=== PATIENT | male | born 1950 | race Two or more races ===

== ENCOUNTER 2024-05-15 15:24 | Emergency (ER) | payer OTHER ==
[~2024-05-15] VITALS: Ht 170.2 cm; Wt 60.5 kg
--- NOTE | 2024-05-15 16:01 | ECG ---
[facility] Test Date: 2024-05-15 Test Time: 15:44:30 Pat Name: DANE GARCIA Department: er Room: Gender: M [employer] Consultant: gp : [id number] Requested By: JERI AGGARWAL Order Number: [id number] Reading MD: Jc Lynch Measurements Intervals Meyers Chuck Rate: 101 P: 56 MD: 148 QRS: 20 QRSD: 110 T: 65 QT: 351 QTc: 455 Interpretive Statements Sinus tachycardia Ventricular trigeminy Low voltage, precordial leads RSR' in V1 or V2, right VCD or RVH Electronically Signed On 05-16-2024 16:24:53 PST by Jc Lynch Please click the below link to view image of tracing.
--- NOTE | 2024-05-15 16:21 | ED.PDOC ---
History of Present Illness HPI Comments 73-year-old male brought in by EMS, transferred from [facility] with a diagnosis of sepsis and a pulmonary abscess. The patient presented to [facility] complaining of generalized weakness and dizziness. Patient was released from [facility] 5 days ago after being treated for sepsis frequent falls. CT chest, abdomen and pelvis was performed at [facility] with findings consistent with a developing pulmonary abscess. Patient was treated with IV Zosyn. Patient was transferred here for higher level of care, as [place] does not have pulmonology services. Arrival to our ER, the patient states he feels chest heaviness, shortness of breath and right-sided chest pain which is stabbing. He denies any headache, dizziness or focal weakness. Chief Complaint: Shortness of Breath Time Seen by MD: 15:35 Reviewed Notes: Nurses Notes, Wood Model Builder Notes Allergies: Coded Allergies: Penicillins (Verified Allergy, Unknown, 05/15/24) Information Source: Patient, Transfer Record, Emergency Med Personnel Mode of Arrival: EMS Past Medical History PAST MEDICAL HISTORY: HTN Past Medical History (Other): Chronic back pain, anxiety, prostate disease, neuropathy, gastritis, GERD, fibromyalgia Family History Family History: Reviewed,noncontributory to illness Social History Smoker: Cigarettes Alcohol: Denies ETOH Use Drugs: Denies Drug Use Lives In: Home All Other Systems: Reviewed and Negative (Comprehensive systems review obtained and negative except for what is stated in the HPI.) Physical Exam General Appearance: No Apparent Distress HEENT: PERRL/EOMI, Other (Old appearing infraorbital ecchymoses) Neck: Full Range of Motion, Non-Tender, Normal Inspection, Supple Respiratory: Crackles (Right base), Decreased Breath Sounds (Right side), No Accessory Muscle Use, No Respiratory Distress, Other (Easily speaks full sentences) Cardiovascular: No Edema, No JVD, Regular Rate/Rhythm Breast Exam: Deferred Gastrointestinal: Non Tender, Soft Genitalia: Deferred Pelvic: Deferred Rectal: Deferred Extremities: Normal inspection, Normal range of motion, Non-tender, No pedal edema Neurologic: Alert (Oriented x4), Other (Moves all extremities, no facial asymmetry, no gross focal deficit) Cerebellar Function: NOT DONE Reflexes: NOT DONE Skin: Dry, Pallor, Warm Lymphatic: NOT DONE Was a procedure done? Was a procedure done?: No EKG EKG : Comments Sinus tach, rate 101, normal intervals, normal axis, possible right ventricular conduction delay, occasional PVCs, no ST/T changes. Differential Dx Considerations may include: Pneumonia, lung abscess, neoplasm, sepsis, among others X-Ray, Labs, Meds, VS Vital Signs Date Time Temp Pulse Resp B/P (MAP) Pulse Ox O2 Delivery O2 Flow Rate FiO2 05/15/24 21:02 90 16 127/65 05/15/24 19:52 99.0 94 19 132/60 (84) 94 99.0 05/15/24 19:52 94 19 94 Nasal Cannula* 2 28 05/15/24 18:55 97 18 125/60 (81) 93 05/15/24 15:45 101 05/15/24 15:30 20 95 Room Air* 0 21 05/15/24 15:30 98.7 97 20 136/63 (87) 95 Lab Test 05/15/24 16:40 05/15/24 16:00 Range/Units White Blood Count 14.2 H 4.4-10.8 10^3/uL Red Blood Count 3.04 L 4.5-5.90 10^6/uL Hemoglobin 9.4 L 13.5-17.5 g/dL Hematocrit 29.3 L 41.0-53.0 % Mean Corpuscular Volume 96.3 80.0-100.0 fL Mean Corpuscular Hemoglobin 31.0 28.0-32.0 pg Mean Corpuscular Hemoglobin Concent 32.2 32.0-36.0 g/dL Red Cell Distribution Width 14.3 11.8-14.3 % Platelet Count 636 H 140-450 10^3/uL Mean Platelet Volume 8.0 6.9-10.8 fL Neutrophils (%) (Auto) 84.3 H 37.0-80.0 % Lymphocytes (%) (Auto) 7.0 L 10.0-50.0 % Monocytes (%) (Auto) 7.4 0.0-12.0 % Eosinophils (%) (Auto) 0.9 0.0-7.0 % Basophils (%) (Auto) 0.4 0.0-2.0 % Neutrophils # (Auto) 12.0 H 1.6-8.6 10 ^3/uL Lymphocytes # (Auto) 1.0 0.4-5.4 10 ^3/uL Monocytes # (Auto) 1.1 0-1.3 10 ^3/uL Eosinophils # (Auto) 0.1 0-0.8 10 ^3/uL Basophils # (Auto) 0.1 0-0.2 10 ^3/uL Nucleated Red Blood Cells 0.0 % Sodium Level 141 136-145 mmol/L Potassium Level 4.0 3.5-5.1 mmol/L Chloride Level 109 H 98-107 mmol/L Carbon Dioxide Level 25 20-31 mmol/L Anion Gap 7 5-15 Blood Urea Nitrogen 9 9-23 mg/dL Creatinine 0.85 0.700-1.30 mg/dL Glomerular Filtration Rate Calc 91 >90 mL/min BUN/Creatinine Ratio 10.6 10.0-20.0 Serum Glucose 94 74-106 mg/dL Calcium Level 8.1 L 8.7-10.4 mg/dL Lactic Acid Level 1.4 0.4-2.0 mmol/L Current Medications Medications (Trade) Dose Ordered Sig/Tee Route Start Time Stop Time Status Last Admin Morphine Sulfate 4 mg ONCE ONCE IV 05/15/24 20:45 05/15/24 20:46 DC 05/15/24 21:02 Ondansetron HCl (Zofran) 4 mg ONCE ONCE IV 05/15/24 20:45 05/15/24 20:46 DC 05/15/24 21:03 X-Ray, Labs, Meds, VS Comment 73-year-old male with history of hypertension, anxiety, fibromyalgia, gastritis, GERD and prostate disease transferred from [facility] for pulmonology evaluation due to developing right pulmonary abscess Vitals remarkable for Exam remarkable for diminished breath sounds and crackles on the right. Rhythm strip independently interpreted by me: Sinus tach, rate 101, occasional PVCs Chest x-ray performed at [facility] reviewed: Showing patchy infiltrates throughout the left lung and at right lung base consistent with pneumonia. CT chest abdomen and pelvis performed at [facility] reviewed: Impression: Multifocal airspace disease suspicious for multifocal infection. There is more focal consolidation in the right lower lobe with central areas of hypoattenuation possibly representing intraparenchymal pulmonary abscess formation. Recommend repeat imaging after treatment to ensure complete resolution and exclude underlying neoplastic etiology. Distended stomach. Moderate volume colonic stool. CBC, BMP BNP, troponin, lactate, blood cultures, sputum culture pending. Patient was treated with IV Zosyn and vancomycin at [facility]. Patient received the following treatment in our ED: Morphine 4 mg IV, Zofran 4 mg IV. Patient stated pain had improved. Vitals were stable. Plan was to admit the patient for IV antibiotics and pulmonology evaluation. I discussed the case with Dr. Randolph, who was able to obtain the records from [facility] and felt the patient's current findings are consistent with his condition at the time of discharge from [facility]. He did not feel the patient required ongoing IV antibiotics. The patient is in fact on oxygen at home since leaving [facility]. I re-evaluated the patient, and he stated that he felt he was improving at home, however he feels very weak, his pain is not well controlled, and he stated he would prefer to go to a group home facility. I discussed this with Dr. Randolph, who will contact case management to arrange for the patient to be transferred to a group home facility in the morning. Patient is currently stable for discharge from an ED standpoint. Time of 1ST Reevaluation: 16:18 Reevaluation 1ST: Unchanged Time of 2ND Reevaluation: 20:53 Reevaluation 2ND: Improved Patient Education/Counseling: Diagnosis, Treatment Family Education/Counseling: No Family Present Departure 1 Departure Time of Disposition: 16:19 Impression: Primary Impression: Abscess of lung with pneumonia Qualified Codes: J85.1 - Abscess of lung with pneumonia Disposition: 03 CUSTODIAL FACILITY Condition: Stable Discharged With: Self Critical Care Note Critical Care Time?: No Stability Stability form required: No Heart Score Heart Score: Heart Score Response (Comments) Value History Slightly Suspicious 0 EKG Normal 0 Age >65 2 Risk Factors 1 or 2 risk factors 1 Troponin Normal limit 0 Total 3 JERI BONDS MD May 15, 2024 16:21
[2024-05-15 17:04] LABS: Basophils # (auto) 0.1 10 ^3/uL (0-0.2); Basophils % (auto) 0.4 % (0.0-2.0); Eosinophils # (auto) 0.1 10 ^3/uL (0-0.8); Eosinophils % (auto) 0.9 % (0.0-7.0); Hematocrit 29.3 % (41.0-53.0); Hemoglobin 9.4 g/dL (13.5-17.5); Mean Corpuscular Hgb Conc. 32.2 g/dL (32.0-36.0); Mean Corpuscular Volume 96.3 fL (80.0-100.0); Monocytes # (auto) 1.1 10 ^3/uL (0-1.3); Monocytes % (auto) 7.4 % (0.0-12.0); Neutrophils % (auto) 84.3 % (37.0-80.0); Platelet Count (auto) 636 10^3/uL (140-450); Red Blood Cells 3.04 10^6/uL (4.5-5.90); Red Cell Distribution Width 14.3 % (11.8-14.3); White Blood Cell 14.2 10^3/uL (4.4-10.8)
[2024-05-15 17:17] LABS: Sodium 141 mmol/L (136-145)
[2024-05-15 17:18] LABS: Anion Gap 7 (5-15); Carbon Dioxide 25 mmol/L (20-31)
[2024-05-15 17:23] LABS: BUN/Creatinine Ratio 10.6 (10.0-20.0); Blood Urea Nitrogen 9 mg/dL (9-23); Glucose 94 mg/dL (74-106)
[2024-05-15 18:00] LABS: Calcium 8.1 mg/dL (8.7-10.4); Chloride 109 mmol/L (98-107)
[2024-05-15 19:52] VITALS: PULSE 94; RESP 19; O2SAT 94
[2024-05-15] MEDS: MORPHINE SULFATE 4 MG/ML SYR/VIAL IV ONE (21:02)
[2024-05-15] MEDS: ONDANSETRON HCL 4 MG/2 ML VIAL IV ONE (21:03)
[2024-05-15] MEDS: HYDROcodone-ACET 10/325MG TAB PO ONE (23:16)
[2024-05-16] MEDS: VANCOMYCIN 1GM/250ML KIT 200 ML IV ONE (01:00)
[2024-05-16] MEDS ORDERED: LEVO500T91 PO (01:08)
[2024-05-16] MEDS: MEROPENEM 1GM IVPB 50 ML IV SCH (01:30)
[2024-05-16] MEDS: QUEtiapine FUMARATE 100 MG TAB PO ONE (01:46)
[2024-05-16 03:05] LABS: COVID19 ANTIGEN SOFIA FIA NEGATIVE (NEGATIVE); Rapid Influenza A Negative (Negative); Rapid Influenza B Negative (Negative)
[2024-05-16] MEDS: HYDROcodone-ACET 5/325MG TAB PO ONE (07:04)
[2024-05-16 07:23] LABS: Basophils # (auto) 0.1 10 ^3/uL (0-0.2); Basophils % (auto) 0.9 % (0.0-2.0); Eosinophils # (auto) 0.2 10 ^3/uL (0-0.8); Eosinophils % (auto) 1.5 % (0.0-7.0); Hematocrit 28.8 % (41.0-53.0); Hemoglobin 9.7 g/dL (13.5-17.5); Lymphocytes # (auto) 1.3 10 ^3/uL (0.4-5.4); Lymphocytes % (auto) 11.6 % (10.0-50.0); Mean Corpuscular Hemoglobin 31.5 pg (28.0-32.0); Mean Corpuscular Hgb Conc. 33.5 g/dL (32.0-36.0); Monocytes % (auto) 9.3 % (0.0-12.0); Neutrophils # (auto) 8.4 10 ^3/uL (1.6-8.6); Neutrophils % (auto) 76.7 % (37.0-80.0); Platelet Count (auto) 512 10^3/uL (140-450); Red Blood Cells 3.06 10^6/uL (4.5-5.90); Red Cell Distribution Width 13.8 % (11.8-14.3); White Blood Cell 10.9 10^3/uL (4.4-10.8)
[2024-05-16 08:54] VITALS: RESP 18; O2SAT 96
[2024-05-16 10:39] VITALS: BP 123/57; PULSE 91; RESP 20; TEMP 98; O2SAT 94
--- NOTE | 2024-05-17 20:55 | DVHINCON2 ---
DATE OF CONSULTATION: 05/16/2024 CHIEF COMPLAINT: Coming in from [facility] due to concern for sepsis and reduced level of consciousness and sepsis. The patient apparently most recently hospitalized at [facility] and was recently discharged on 05/11/2024. The patient went home to his [facility] for reduced level of consciousness and concern for sepsis. HISTORY OF PRESENT ILLNESS: This is a 73-year-old male with significant past medical history for hypertension, insomnia, benign prostate hypertrophy, fibromyalgia and acid reflux, who presents to our emergency room from [facility] due to concern for sepsis and altered level of consciousness. The patient apparently had recent hospitalization at [facility] from 04/29/2024 to 05/11/2024, complicated by aspiration pneumonia, Klebsiella urinary tract infection leading to sepsis as well as requiring oxygen on discharge with 2 liters of nasal cannula oxygen. The patient apparently received 7 days IV course of vancomycin and aztreonam for the coverage of possibility of aspiration pneumonia as well as his Klebsiella infection. The patient had apparently 1 blood culture that came back positive 1/4 bottles that was consistent with contamination and repeat blood cultures were negative. The patient was apparently offered to be transitioned to senior living facility, but refused and wanted to go home despite being with generalized weakness. The patient apparently arrived home within 24 hours per the patient. called the ambulance as he fell asleep and felt that he was not being arousable. The patient was taken to [facility] where he was found to have some leukocytosis and tachycardia. The patient was given fluids with IV antibiotics. CT imagings were done and that showed right lower lobe pneumonia and the patient was transitioned here due to concern that no optimization analyst were available at their facility. The patient here seems to be afebrile, fully alert and oriented x4, not reporting of any respiratory distress. The patient currently satting adequately on his 2 liters nasal cannula oxygen that he was discharged from [facility] facility. The patient denies any fevers or chills, any night sweats, cough, recent onset of phlegm. The patient denies any chest pain symptoms with exception to when taking deep inspirations causing him to have some right anterior rib and lateral right-sided ribcage pain. No nausea, no vomiting. Denies any diarrhea, constipation, bloody or tarry stools, any urinary frequency, urgency, burning sensation symptoms. PAST MEDICAL HISTORY: Gastroesophageal reflux disease, fibromyalgia, benign prostate hypertrophy, insomnia, and hypertension. PAST SURGICAL HISTORY: Denies any major surgeries. SOCIAL HISTORY: Former tobacco user, quit about 35-40 years ago. No alcohol, no illicit drugs. MEDICATIONS: At home per medical reconciliation. MEDICATION ALLERGIES: PENICILLINS. REVIEW OF SYSTEMS: A 10-point review of systems was covered with the patient and was negative with exception as well as presence of present illness. PHYSICAL EXAMINATION: VITAL SIGNS: Temperature of 98.7, pulse rate of 97, respiratory rate of 20, blood pressure 136/63, pulse ox about 95% on 2 liters of nasal cannula. GENERAL: Seems to be alert x4, not in acute distress male, lying in bed. HEENT: Normocephalic, atraumatic. Extraocular muscles are intact. Pupils are equally round, react to light and accommodation. Mucous membranes are moist. CARDIOVASCULAR: S1, S2 positive. Regular rate and rhythm. No rubs, gallops, or murmurs. LUNG: The patient does have some posterior bibasilar rales, but no wheezing or rhonchi appreciated. ABDOMEN: Seems to be soft, nontender, nondistended, positive bowel sounds. No guarding or rebound. EXTREMITIES: Lower extremities, no lower extremity edema, clubbing, or cyanosis. NEUROLOGIC: No focal deficits. Cranial nerves testing II-XII overall seems to be intact. LABORATORY WORKUP: Shows a white count of 14.2, H and H of 9.4/29.3, platelet count of 636,000 with a neutrophil shift of 84.3%. Sodium 141, potassium 4.0, chloride 109, carbon dioxide of 25, anion gap of 7, BUN of 9, creatinine of 0.85. Lactic acid 1.4, calcium 8.1. Serology testing for influenza and COVID-19 was negative. Blood cultures were no growth after 24 hours x2 bottles. EKG shows sinus rhythm, ventricular rate of 76, no ST elevations or depressions. DIAGNOSES: * Bibasilar multifocal patchy infiltrates, likely representing new-onset pneumonia. * Generalized weakness. PLAN: The patient medical records from [facility] were reviewed and the patient's full assessment was completed. The patient did seem to present to [facility] facility in septic physiology; however, the patient currently no longer has sepsis. The patient's leukocytosis seems to have improved after receiving IV fluids and antibiotics at [facility], apparently white count prior to discharge down to 10.4. The patient has been afebrile throughout his ER course. The patient did receive some IV antibiotics here in the Emergency Room in combination with some pain medication. The patient currently does not show any form of confusion, is fully alert to self, time, and place. The patient's CT imaging that was completed at [facility] did show a concern for multifocal airspace disease suspicious for multifocal infection in the right lower lobe with central areas of hypoattenuation, possibly representing intraparenchymal pulmonary abscess formation. Recommend repeat imaging with treatment to ensure complete resolution and exclude underlying neoplastic etiology. The patient at this time has no symptoms of upper respiratory infection to include fever, chills, cough, phlegm, night sweats. The patient is currently at his baseline oxygen of 2 liters nasal cannula since his discharge from [facility]. At this time, I would recommend the patient to be placed on Levaquin 500 p.o. daily for 10-day course and additionally a post-discharge Dr. [facility] was informed in addition to his Levaquin to be given ertapenem 1 g IV daily for 7-day course for possibility of what seems to be recurrent pneumonia and possibly a recurrent aspiration event as that was the main concern at [facility]. The patient otherwise again from my standpoint is stable for discharge. The patient to return to the Emergency Room in case of any fevers or chills, shortness of breath, palpitations, dizziness, night sweats, nausea, vomiting, chest pain, or any other concerning signs and/or symptoms. The patient also will be recommended to have a repeat CT chest imaging followup within 6-12 weeks for resolution of his findings and to exclude possibility of underlying malignancy as per the recommendations of the interpreting radiologist of the CT scan. Jose Tarango MD LM/ELIAS TID: [id number] RECEIPT: [id number]
== END 2024-05-16 11:08 | disposition short-term general hospital (02) ==
LOC: ER 15:24 → EDBD 15:24 → ER 05-16 11:08
DX: J18.9 Pneumonia, unspecified organism (principal); K21.9 Gastro-esophageal reflux disease without esophagitis; I10 Essential (primary) hypertension; G89.29 Other chronic pain; F17.210 Nicotine dependence, cigarettes, uncomplicated; Z87.19 Personal history of other diseases of the digestive system; Z87.440 Personal history of urinary (tract) infections; Z88.0 Allergy status to penicillin; Z99.81 Dependence on supplemental oxygen; Z20.822 Contact with and (suspected) exposure to COVID-19
CPT/HCPCS: 36415; 80048; 83605; 85025; 87040; 87426; 87804; 93005; 96365; 96366; 96367; 96368; 96375; 99291; J2185; J2270; J2405; J3370